=== PATIENT | male | born 1995 ===

== ENCOUNTER → 2020-11-20 07:42 | Outpatient (BNVA) | payer BC, SELFPAY | PROVIDERS: PCP Family Medicine; Visit Provider Urology | DX: N48.1 Balanitis (principal) | CPT/HCPCS: 81003 ==

== ENCOUNTER 2020-11-26 14:45 | Outpatient (CLI) | payer BC, SELFPAY ==
[2020-11-26 16:06] LABS: Rapid Plasma Reagin Syphilis Nonreactive (Nonreactive)
[2020-11-26 16:10] LABS: HIV 1 & 2 Antibody Non-Reactive (Non-Reactiv); HIV 1 & 2 Antigen Non-Reactive (Non-Reactiv)
== END 2020-11-26 14:46 | disposition home or self-care (01) ==
PROVIDERS: Visit Provider Dermatology
DX: N48.5 Ulcer of penis (principal)
CPT/HCPCS: 36415; 86592; 87491; 87806